=== PATIENT | female | born 1970 | race Caucasian/White ===

== ENCOUNTER 2016-08-18 03:03 | Emergency (ER) | payer SELFPAY ==
[~2016-08-18] VITALS: Ht 175.3 cm; Wt 58.0 kg
[~2016-08-18 03:03] MED LIST: ATEN-100 PO; HYDR-3533 PO; LISI10 PO
[2016-08-18 03:05] VITALS: BP 129/72; PULSE 77; RESP 14; TEMP 97.3; O2SAT 96
[2016-08-18] MEDS ORDERED: ATEN25TA PO (03:38)
[2016-08-18] MEDS ORDERED: LISI10TA3 PO (03:38)
--- NOTE | 2016-08-18 04:33 | RADRPT ---
EXAM DATE/TIME: 08/18/2016 04:03 [facility] COMPARISON: No previous studies available for comparison. INDICATIONS : Slipped and fell three days ago, right sided pain RADIATION DOSE: 37.75 CTDIvol (mGy) MEDICAL HISTORY : Seizures. Hypertension. Ovarian/uterine cancer. SURGICAL HISTORY : Hysterectomy. ENCOUNTER: Initial ACUITY: 3 days PAIN SCALE: 3/10 LOCATION: Right cranial TECHNIQUE: Multiple contiguous axial images were obtained of the head. Using automated exposure control and adj ustment of the mA and/or kV according to patient size, radiation dose was kept as low as reasonably a chievable to obtain optimal diagnostic quality images. FINDINGS: CEREBRUM: The ventricles are normal for age. No evidence of midline shift, mass lesion, hemorrhage or acute in farction. No extra-axial fluid collections are seen. POSTERIOR FOSSA: The cerebellum and brainstem are intact. The 4th ventricle is midline. The cerebellopontine angle i s unremarkable. EXTRACRANIAL: The visualized portion of the orbits is intact. SKULL: The calvaria is intact. No evidence of skull fracture. CONCLUSION: 1. No evidence of acute intracranial pathology. No masses are identified. Garcia Tirado MD on August 18, 2016 at 4:31 Board Certified Radiologist. This report was verified electronically.
--- NOTE | 2016-08-18 04:36 | RADRPT ---
EXAM DATE/TIME: 08/18/2016 04:03 [facility] COMPARISON: No previous studies available for comparison. INDICATIONS : Slipped and fell three day ago; right facial pain RADIATION DOSE: 47.77 CTDIvol (mGy) MEDICAL HISTORY : Seizures. Hypertension. Ovarian/uterine cancer. SURGICAL HISTORY : Hysterectomy. ENCOUNTER: Initial ACUITY: 3 days PAIN SCORE: 4/10 LOCATION: Right facial TECHNIQUE: Volumetric scanning of the facial bones was performed. Using automated exposure control and adjustme nt of the mA and/or kV according to patient size, radiation dose was kept as low as reasonably achiev able to obtain optimal diagnostic quality images. FINDINGS: ORBITS: The orbital and infraorbital osseous structures are intact. The retroconal structures have a normal configuration. No radiopaque foreign bodies are seen. NASAL BONE: The nasal bone and maxillary spine are intact ZYGOMATIC ARCHES: Symmetric without evidence of fracture. SINUSES: The maxillary, ethmoid and frontal sinuses are intact. No air-fluid levels seen. NASAL CAVITY: The nasal septum is intact and midline. The lacrimal ducts are intact. SOFT TISSUES: No radiopaque foreign bodies seen. No soft-tissue swelling is seen. INTRACRANIAL: No intracranial air seen. CRIBIFORM PLATE: Grossly intact. CONCLUSION: 1. There is no evidence of acute fracture. Garcia Tirado MD on August 18, 2016 at 4:32 Board Certified Radiologist. This report was verified electronically.
--- NOTE | 2016-08-18 04:43 | PD ---
HPI Chief Complaint: Head Injury Time Seen by Provider: 03:47 Travel History International Travel<30 days: No Contact w/Intl Traveler<30days: No Traveled to known affect area: No History of Present Illness HPI 45yo F with PMH of HTN presents to the ED with right jaw pain and right sided neck and head pain s/p slip and fall in bathroom 3 days ago. States she hit her right face on sink. +LOC. Denies any fever, visual changes, chest pain, sob, n/v, abdominal pain, focal weakness or numbness. PFSH Past Medical History Cancer: Yes (uterine, ovarian, removed) Cardiovascular Problems: Yes (HTN) Diminished Hearing: No Hypertension: Yes Seizures: Yes Tetanus Vaccination: > 5 Years Influenza Vaccination: No ?: Not LMP: N/A : 3 Para: 2 Miscarriage: 1 Past Surgical History Gynecologic Surgery: Yes (UTERUS AND ONE OVARY GONE.) Hysterectomy: Yes Social History Alcohol Use: Yes (occasional) Tobacco Use: Yes (1 ppd) Substance Use: No Allergies-Medications (Allergen,Severity, Reaction): Coded Allergies: Penicillin (Verified Allergy, Severe, IT WILL KILL ME, 08/18/16) Uncoded Allergies: HORMONES (Adverse Reaction, Intermediate, VOMITING, 01/14/13) Reported Meds & Prescriptions Reported Meds & Active Scripts Active Reported Lisinopril 10 Mg Tab 10 Mg PO DAILY Atenolol 25 Mg Tab 25 Mg PO DAILY Review of Systems Except as stated in HPI: all other systems reviewed are Neg Physical Exam Narrative GENERAL: 45yo F not in distress. SKIN: Warm and dry. HEAD: Atraumatic. Normocephalic. +TTP right angle of mandible. No edema. no trismus. EYES: Pupils equal and round. EOMI. ENT: TM wnl bilaterally. No septal hematoma. NECK: No midline ttp cervical spine. +TTP right paraspinal muscle. CARDIOVASCULAR: Regular rate and rhythm. No murmur appreciated. RESPIRATORY: No accessory muscle use. Clear to auscultation. Breath sounds equal bilaterally. GASTROINTESTINAL: Abdomen soft, non-tender, nondistended. No rebound tenderness or guarding. MUSCULOSKELETAL: No obvious deformities. No clubbing. No cyanosis. No edema. NEUROLOGICAL: Awake and alert. No obvious cranial nerve deficits. Motor grossly within normal limits. Normal speech. PSYCHIATRIC: Appropriate mood and affect; insight and judgment normal. Data Data Last Documented VS Vital Signs Date Time Temp Pulse Resp B/P Pulse Ox O2 Delivery O2 Flow Rate FiO2 08/18/16 03:05 97.3 77 14 129/[address] Brain W/O Iv Contrast(Rout) (08/18/16 ) Ct Facial Bones W/O Iv Cont (08/18/16 ) Diazepam (Valium) (08/18/16 06:15) MDM Medical Decision Making Medical Screen Exam Complete: Yes Emergency Medical Condition: Yes Interpretation(s) Last Impressions Maxillofacial CT 08/18/16 0000 Signed Impressions: Service Date/Time: Thursday, August 18, 2016 04:03 - CONCLUSION: 1. There is no evidence of acute fracture. Garcia Tirado MD Head CT 08/18/16 0000 Signed Impressions: Service Date/Time: Thursday, August 18, 2016 04:03 - CONCLUSION: 1. No evidence of acute intracranial pathology. No masses are identified. Garcia Tirado MD Differential Diagnosis Contusion vs. musculoskeletal pain vs. fracture Narrative Course 45yo F with right facial pain and headache s/p fall [address] brain negative. CT maxillofacial showed no acute fracture. Pt given toradol 30mg IM with improvement of pain. Diagnosis Primary Impression: Fall Qualified Code: W19.XXXA - Fall, initial encounter Patient Instructions: General Instructions Departure Forms: Tests/Procedures Additional Instructions: Please follow up with your PMD in 3-7 days. Return to the ED if symptoms worsen. Med/Other Pt SpecificInfo: Prescription(s) given Scripts Acetaminophen (Acetaminophen Extra Strength)500 Mg Ufo029 Mg PO Q6H PRN (PAIN SCALE 1 TO 4) #20 TAB Ref 0 Prov:Diana Talley DO 08/18/16 Disposition: 01 DISCHARGE HOME Condition: Stable Diana Talley DO Aug 18, 2016 04:43
[2016-08-18] MEDS ORDERED: ACET500T36 PO (06:04)
[2016-08-18] MEDS ORDERED: DIAZEPAM 5 MG TAB PO ONE (06:15)
[2016-08-18] MEDS ORDERED: KETOROLAC TROMETHAMINE 60 MG/2 ML (IM) VIAL IM ONE (06:15)
== END 2016-08-18 06:39 | disposition home or self-care (01) ==
LOC: NEPC 03:03
DX: S09.90XA Unspecified injury of head, initial encounter (principal); W01.198A Fall on same level from slipping, tripping and stumbling with subsequent striking against other object, initial encounter; Y92.89 Other specified places as the place of occurrence of the external cause
CPT/HCPCS: 70450; 70486; 96372; 99283; J1885